=== PATIENT | male | born 1980 | race Two or more races ===

== ENCOUNTER 2022-02-09 16:58 | Emergency (ER) | payer SELFPAY ==
[~2022-02-09] VITALS: Ht 177.8 cm; Wt 90.0 kg
[2022-02-09 17:23] VITALS: BP 137/79
[2022-02-09] MEDS ORDERED: SODIUM CHLORIDE 0.9% 1,000 ML IV ONE (17:30)
== END 2022-02-09 17:51 | disposition left against medical advice (07) ==
LOC: ER 16:58
DX: T40.991A Poisoning by other psychodysleptics [hallucinogens], accidental (unintentional), initial encounter (principal); Y92.9 Unspecified place or not applicable
CPT/HCPCS: 99283; J7030